=== PATIENT | female | born 1955 | race Caucasian/White ===

== ENCOUNTER 2020-08-14 19:02 | Inpatient (IN) | payer MEDICARE, OTHER, SELFPAY ==
--- NOTE | ~2020-08-14 | CT_ITS ---
EXAMINATION: CT abdomen pelvis w con EXAM DATE: 08/14/2020 21:08 INDICATION: GI bleed. Abdominal pain, left lower quadrant pain. TECHNIQUE: Spiral CT of the abdomen and pelvis was performed following intravenous injection of 100 m L Omnipaque 350. Axial, coronal and sagittal images were reviewed. The dose-length product (DLP) fo r this examination was 781.12 mGy-cm. The exposure was tailored according to patient size (auto mA e xposure control), and iterative reconstruction (ASIR) was used as additional dose reduction technique . There is no prior study for comparison. FINDINGS: The liver, spleen, adrenal glands and pancreas are unremarkable. Gallbladder is unremarkab le. No biliary obstruction. Portal and splenic veins are patent. Kidneys enhance symmetrically. T here is no hydronephrosis. The uterus is not identified and has likely been surgically resected. T he bladder is unremarkable. There is no retroperitoneal or pelvic lymphadenopathy. There is mild s cattered arteriosclerotic disease. The appendix is normal. There is small sliding gastroesophageal hiatal hernia. There is splenic fle xure and descending colonic wall moderate edema, appearance is consistent with colitis, most likely i nfectious. No free intraperitoneal gas. The heart is normal in size. There are no pericardial or pleural effusions. The lung bases are unremarkable. There are no osteoblastic or osteolytic lesion s identified. IMPRESSION: 1. Splenic flexure and descending colonic colitis. Reviewed, dictated and finalized at location A.
[2020-08-14 19:16] VITALS: BP 132/70; PULSE 72; RESP 20; TEMP 37; O2SAT 100
[2020-08-14 20:00] LABS: Basophils Absolute Auto 0.1 K/mm3 (0.0-0.1); Basophils Percent Auto 0.5 % (0.2-1.2); Eosinophils Absolute Auto 0.2 K/mm3 (0-0.3); Eosinophils Percent Auto 1.7 % (0-4.4); Hematocrit 36.6 % (37.0-47.0); Hemoglobin 11.7 g/dL (12.0-15.0); Immature Granulocyte Absolute 0.02 K/mm3 (0.00-0.031); Immature Granulocyte Percent A 0.2 % (0-0.5); Lymphocytes Absolute Auto 1.08 K/mm3 (0.9-3.2); Lymphocytes Percent Auto 10.4 % (18.3-44.2); Mean Corpuscular Hemoglobin 31.1 pg (26-34); Mean Corpuscular Volume 97.3 fl (80-100); Monocytes Absolute Auto 0.9 K/mm3 (0.1-0.6); Monocytes Percent Auto 8.5 % (2.6-8.5); Neutrophils Absolute Auto 8.2 K/mm3 (1.3-6.7); Neutrophils Percent Auto 78.7 % (45.5-73.1); Platelet Count Result 189 k/mm3 (150-375); Red Blood Count 3.76 M/mm3 (4.2-5.4); Red Cell Distribution Width 12.7 % (11.5-14.5); White Blood Count 10.4 K/mm3 (4.5-10.0)
[2020-08-14 20:06] LABS: Add Urine Microscopic? YES; Appearance Urine Cloudy (Clear); Bacteria Urine Trace /hpf; Bilirubin Urine Negative (Negative); Blood Urine 1+ (Negative); Color Urine Yellow (Yellow); Glucose Urine UA Negative (Negative); Ketones Urine Negative (Negative); Leukocyte Esterase Ur 1+ LEU/UL (Negative); Mucus Urine Rare /lpf; Nitrate Urine Negative (Negative); Protein Urine 2+ mg/dL (Negative); Specific Grav Ur 1.017 (1.001-1.035); Squamous Epithelial Cell Urine Moderate /hpf (Few); Urobilinogen Urine Negative mg/dL (<2.0); WBC Urine 16-20 /hpf
[2020-08-14 20:12] LABS: Alanine Aminotransferase 23 U/L (4-35); Albumin Level 4.6 g/dL (3.5-5.1); Alkaline Phosphatase 65 U/L (38-126); Anion Gap 12 mmol/L (8-16); Aspartate Amino Transferase 24 U/L (14-36); Bilirubin,Total 0.5 mg/dL (0.2-1.3); Blood Urea Nitrogen 34 mg/dL (7-17); Calcium 9.8 mg/dL (8.4-10.2); Carbon Dioxide 25 mmol/L (22-30); Chloride 102 mmol/L (98-107); Estimated Glomerular Filt Rate 35; Glucose 115 mg/dL (65-105); Lipase 81 U/L (23-300); Potassium 4.2 mmol/L (3.4-5.0); Sodium 139 mmol/L (137-145)
[2020-08-14 21:00] VITALS: BP 127/73; PULSE 69; RESP 16; O2SAT 100
--- NOTE | 2020-08-14 21:13 | ED.NAVMDI ---
HPI - Nausea/Vomiting/Diarrhea General Chief complaint: Nausea/Vomiting/Diarrhea Stated complaint: abd pain, diarrhea, blood in stool Time Seen by Provider: 08/14/20 19:29 Source: patient Mode of arrival: ambulatory Limitations: no limitations History of Present Illness HPI Narrative: 64-year-old female Generally healthy, has hypertension and hyperlipidemia Complains of 2 days of diarrhea accompanied by crampy abdominal pain which is more severe on the left side There was a little bit of blood noted yesterday and subsequent stools and then this evening she had a single large bloody bowel movement No fever nausea but no vomiting no urinary symptoms Location of pain: LLQ Related Data Home Medications Medication Instructions Recorded Confirmed calcium carbonate 600 mg calcium 600 mg PO DAILY 09/24/19 (1,500 mg) tablet Allergies Allergy/AdvReac Type Severity Reaction Status Date / Time codeine Allergy Mild BLURRED Verified 09/24/19 10:13 VISION propoxyphene Allergy Mild BLURRED Verified 09/24/19 10:13 VISION bupivacaine Allergy Unknown . Verified 09/24/19 10:13 ALL GOLD[employer]ODUCTS MADE WITH Allergy Mild Swelling Uncoded 08/30/19 11:54 ESTERS Review of Systems Review of Systems: All systems reviewed & are unremarkable except as noted in HPI and below Constitutional: Constitutional: Denies chills, Denies fatigue, Denies fever(s), Denies headache(s) and Denies night sweats Eyes: Eyes: Denies change in vision, Denies loss of vision and Denies other visual disturbances ENT: Denies headache(s), Denies hoarseness, Denies epistaxis, Denies nasal congestion and Denies sore throat Cardiovascular: Cardiovascular: Denies chest pain, Denies leg edema, Denies palpitations and Denies dyspnea Respiratory: Respiratory: Denies cough, Denies dyspnea and Denies wheezing Gastrointestinal: Gastrointestinal: Reports abdominal pain, Reports diarrhea, Denies nausea and Denies vomiting Genitourinary: Genitourinary: Denies hematuria, Denies urinary frequency and Denies dysuria Musculoskeletal: Musculoskeletal: Denies abnormal gait, Denies deformity, Denies joint swelling, Denies muscle weakness and Denies numbness Integumentary/Breasts: Skin/Breast: Denies rash, Denies unusual bruising and Denies wounds Neurologic: Denies abnormal gait, Denies headache(s), Denies focal weakness, Denies loss of vision and Denies numbness Psychiatric: Psychiatric: Reports no additional psychiatric complaints Endocrine: Endocrine: Denies fatigue and Denies palpitations Hematologic/Lymphatic: Hematologic/Lymphatic: Denies easy bleeding and Denies easy bruising Allergic/Immunologic: Allergic/Immunologic: Denies wheezing PMFSH Past Medical History Medical History (Updated 08/14/20 @ 22:08 by Hamilton Smith MD) Benign essential hypertension CKD (chronic kidney disease) Encounter for preventive health examination Hyperlipidemia On intermission coordinator drug therapy Pre-diabetes Family History Family History (System 08/30/19 @ 11:54 by Little Rocha) Mother Hypertension Family history of malignant neoplasm of breast in first degree relative Social History Social History (System 08/30/19 @ 11:54 by Little Rocha) Smoking status: Never smoker Alcohol intake: current Gender identity (if verbalized by the patient): Female Exam Const: General: healthy appearing, no acute distress and well developed Nutritional Appearance: well nourished Orientation/consciousness: patient oriented x3 (alert) and Other orientation findings (Alert) Limitations: no limitations HENMT: Head: normocephalic and atraumatic Ears: external ears normal General nose exam: No nasal discharge present Face and sinus: face symmetric Mouth: Yes lip normal, Yes tongue normal and Yes moist mucous membranes Throat: other (No exudate, no erythema) Eyes: Conjunctivae: conjunctivae normal Sclera: sclerae normal EOM: EOMs intact bilaterally
[2020-08-14 22:30] VITALS: BP 130/75; PULSE 67; RESP 18; O2SAT 100
[2020-08-14 23:00] VITALS: BP 125/60; PULSE 72; RESP 18; TEMP 36.8; O2SAT 100; BMI 31.6
--- NOTE | 2020-08-14 23:00 | PC.NURSE ---
This patient, Olimpia Zapata, was admitted to 3 [facility] Surg Room 314-01. Patient/family oriented to hospital policies and general routines including ID bracelet, bed and alarms, visiting hours, pain management, procedures, bathroom and other care routines, personal items, smoking policy, room service/diet, and visiting hours. Information on how to activate the Rapid Response Team has been discussed. Patient/Family are encouraged to report perceived risks to care and to ask questions if they do not understand what they are told or what they should do.
[2020-08-15] VITALS (8 sets, daily range): BP systolic 83–134; BP diastolic 43–89; PULSE 61–76; RESP 16–20; TEMP 36.4–37.1; O2SAT 95–98
[2020-08-15] MEDS: ACETAMINOPHEN 325 MG TABLET PO ×3 (00:24→21:58)
[2020-08-15] MEDS: metroNIDAZOLE 250 MG TABLET 500 MG PO ×2 (00:25→06:02)
[2020-08-15] MEDS: LACTATED RINGERS 1,000 ML 125 ML IV CONT ×2 (00:28→07:44)
[2020-08-15 06:31] LABS: Basophils Percent Auto 0.5 % (0.2-1.2); Eosinophils Absolute Auto 0.2 K/mm3 (0-0.3); Hematocrit 32.2 % (37.0-47.0); Hemoglobin 10.6 g/dL (12.0-15.0); Immature Granulocyte Absolute 0.03 K/mm3 (0.00-0.031); Immature Granulocyte Percent A 0.4 % (0-0.5); Lymphocytes Percent Auto 17.5 % (18.3-44.2); Mean Corpuscular HGB Conc 32.9 g/dl (32-36); Mean Corpuscular Hemoglobin 31.1 pg (26-34); Mean Corpuscular Volume 94.4 fl (80-100); Mean Platelet Volume 9.8 fl (7.4-10.4); Monocytes Absolute Auto 0.7 K/mm3 (0.1-0.6); Monocytes Percent Auto 8.9 % (2.6-8.5); Neutrophils Absolute Auto 5.2 K/mm3 (1.3-6.7); Neutrophils Percent Auto 70.7 % (45.5-73.1); Platelet Count Result 167 k/mm3 (150-375); Red Blood Count 3.41 M/mm3 (4.2-5.4); Red Cell Distribution Width 12.8 % (11.5-14.5); White Blood Count 7.4 K/mm3 (4.5-10.0)
--- NOTE | 2020-08-15 07:50 | PM.IMHP ---
H&P: HPI History of Present Illness Date/Time: 08/15/20 07:50 PATIENT IS ADMITTED UNDER OBSERVATION Chief complaint: lower gi bleed, colitis Narrative: Olimpia Zapata is a 64 year old female with hypertension, CKD and hyperlipidemia who presents to the emergency room with complaints of bloody diarrhea. Yesterday morning patient awoke around 1-2 a.m. with severe crampy abdominal pain. She had severe diarrhea that was bloody. Symptoms subsided and she was able to return to bed. During the day yesterday however she continued to have bright red bowel movements with small amounts of stool. She took Tylenol with benefit. She denies taking other medications. There is no fever. She did have chills and diaphoresis. She felt nauseous but no vomiting. Last colonoscopy was when she was 49 years old and thee were no findings. She has no hemorrhoids. She did eat for frozen shrimp, spinach and spaghetti squash the night before. She has had the spinach and squash prior but not the shrimp. Patient awoke around 6:00 p.m. yesterday from a nap again with crampy abdominal pain and had heavy bright red blood per rectum that she describes as a lot . No history of bloody diarrhea. No oral lesions. No vision changes or eye pain. No chest pain or palpitations. No shortness of breath or cough. No neurologic symptoms. She does have carpal tunnel symptoms on occasion but this is chronic. No dysuria or hematuria. Because of the persistent bloody stools, she presented to the emergency room for evaluation. In the emergency room she was hemodynamically stable[place] [address]. Hemoglobin was 11.7. Creatinine is 1.5. lipase and LFTs are normal. UA noted but had moderate squamous epithelial cells. Urine culture was ordered. CT of the abdomen pelvis showed splenic flexure and descending colonic colitis. Patient was treated with Tylenol, IV fluids, Flagyl and Pepcid. GI has been consulted. She has not had any further bowel movements since admission. Hemoglobin this morning is 10.6. Review of Systems Review of Systems: All systems reviewed & are unremarkable except as noted in HPI and below PMFSH Past Medical History Medical History (Updated 08/15/20 @ 08:46 by Terry Madsen MD) Benign essential hypertension CKD (chronic kidney disease) Depression with anxiety situational GERD (gastroesophageal reflux disease) Hyperlipidemia Palpitations Hx of in 2018 with Holter showing PAC/PVC; Echo showing diastolic dysfxn grade II and EF 65% Pre-diabetes Surgical History Surgical History Hx of breast biopsy Benign Hx of hysterectomy with unilateral oophorectomy Family History Family History (Updated 08/15/20 @ 08:30 by Terry Madsen MD) Mother Hypertension Breast cancer Father Malignant neoplasm of prostate Social History Social History (Updated 08/15/20 @ 08:31 by Terry Madsen MD) Social History: patient is . She lives alone. No pets. She drinks 2 alcoholic drinks a night. No drug use. Lifelong nonsmoker. She is a full code. She nominates her brother to be the individual would make medical decisions for her if she is not able. Smoking status: Never smoker Alcohol intake: current Drinks per week: 5 Substance use: never Gender identity (if verbalized by the patient): Female Sexual Orientation (if Verbalized by the Patient): Straight or Heterosexual Spiritual care concerns: No Meds Home Medications and Allergies Home Medications Medication Instructions Recorded Confirmed Type calcium carbonate 600 mg calcium 600 mg PO DAILY 09/24/19 08/14/20 History (1,500 mg) tablet betaxolol 10 mg tablet 10 mg PO DAILY #90 tablet 06/19/20 08/14/20 Rx lisinopril 20 mg tablet 20 mg PO DAILY #90 tablet 06/19/20 08/14/20 Rx rosuvastatin 40 mg tablet 40 mg PO DAILY #90 tablet 06/19/20 08/14/20 Rx aspirin [Adult Aspiri
[2020-08-15] MEDS: LACTATED RINGERS 1,000 ML 75 ML IV CONT ×2 (09:54→22:22)
--- NOTE | 2020-08-15 09:56 | WPDGICN ---
Assessment and Plan Assessment and plan (1) Colitis: Code(s): K52.9 - Noninfective gastroenteritis and colitis, unspecified Status: Acute Assessment and Plan: Patient with acute diarrhea bleeding and left lower quadrant pain all consistent with colitis. CT scan seems to confirm this. Infectious etiology most likely. Plan is to evaluate with endoscopy today. Stool cultures are suggested broad-spectrum antibiotics in the interim. (2) Acute lower gastrointestinal bleeding: Code(s): K92.2 - Gastrointestinal hemorrhage, unspecified Status: Acute GI Consult Note Consult date/time: 08/15/20 09:56 HPI: Olimpia Zapata is a 64 year old female Seen in evaluation at the request of the emergency room. Patient in usual state of health till night before last when she was awoken in the middle of the night with severe abdominal pain. She had rather profuse watery diarrhea. Yesterday continued to have diarrhea but with blood. For this reason she presented the emergency room. A CT scan suggest inflammation of the colon in the descending colon. Patient denies any prior bleeding. She does not typically have abdominal pain. She does relate eating food the potentially had spoiled. She denies any recent travel. Her family history is noncontributory. All of been healthy. Review of Systems Review of Systems: All systems reviewed & are unremarkable except as noted in HPI and below PMFSH Past Medical History Medical History (Updated 08/15/20 @ 08:46 by Terry Mdasen MD) Benign essential hypertension CKD (chronic kidney disease) Depression with anxiety situational GERD (gastroesophageal reflux disease) Hyperlipidemia Palpitations Hx of in 2018 with Holter showing PAC/PVC; Echo showing diastolic dysfxn grade II and EF 65% Pre-diabetes Surgical History Surgical History Hx of breast biopsy Benign Hx of hysterectomy with unilateral oophorectomy Family History Family History (Updated 08/15/20 @ 08:30 by Terry Madsen MD) Mother Hypertension Breast cancer Father Malignant neoplasm of prostate Social History Social History (Updated 08/15/20 @ 08:31 by Terry Madsen MD) Social History: patient is . She lives alone. No pets. She drinks 2 alcoholic drinks a night. No drug use. Lifelong nonsmoker. She is a full code. She nominates her brother to be the individual would make medical decisions for her if she is not able. Smoking status: Never smoker Alcohol intake: current Drinks per week: 5 Substance use: never Gender identity (if verbalized by the patient): Female Sexual Orientation (if Verbalized by the Patient): Straight or Heterosexual Spiritual care concerns: No Meds Home Medications and Allergies Home Medications Medication Instructions Recorded Confirmed Type calcium carbonate 600 mg calcium 600 mg PO DAILY 09/24/19 08/14/20 History (1,500 mg) tablet betaxolol 10 mg tablet 10 mg PO DAILY #90 tablet 06/19/20 08/14/20 Rx lisinopril 20 mg tablet 20 mg PO DAILY #90 tablet 06/19/20 08/14/20 Rx rosuvastatin 40 mg tablet 40 mg PO DAILY #90 tablet 06/19/20 08/14/20 Rx aspirin [Adult Aspirin EC Low 81 mg PO 3XW 08/14/20 08/14/20 History Strength] omeprazole [Prilosec] 20 mg PO DAILY 08/14/20 08/14/20 History Allergies Allergy/AdvReac Type Severity Reaction Status Date / Time codeine Allergy Mild BLURRED Verified 08/14/20 22:13 VISION propoxyphene Allergy Mild BLURRED Verified 08/14/20 22:13 VISION bupivacaine Allergy Unknown . Verified 08/14/20 22:13 ALL G[employer] MADE WITH Allergy Mild Swelling Uncoded 08/14/20 22:13 ESTERS Vital Signs Vital Signs - 24 hr 08/14/20 19:16 08/14/20 21:00 08/14/20 22:30 Temperature 98.6 F Pulse Rate 72 69 67 Respiratory Rate 20 16 18 Blood Pressure 132/70 127/73 130/75 Pulse Oximetry 100 100 100
--- NOTE | 2020-08-15 12:30 | PC.NURSE ---
To GI Lab per w/c, IV locked. Report given to AMBERLY.
[2020-08-15] MEDS: LACTATED RINGERS 1,000 ML 150 ML IV CONT (12:56)
--- NOTE | 2020-08-15 13:01 | WPDANESEPPF ---
Anes - Initial Pre Proc Eval Procedure: Operation Date: 08/15/20 13:30 Proposed Procedures p Colonoscopy - Hamilton Alvarez MD Date/Time: 08/15/20 13:01 Surgeon: Rajan Madsen MD Pre Op Diagnosis: lower gi bleed, colitis Patient Data Age: 64 Gender: F Height: 5 ft 1 in Weight: 75.8 kg Last Vital Signs Temp 98.1 F 08/15/20 12:53 Pulse 70 08/15/20 12:53 Resp 16 08/15/20 12:53 BP 132/71 08/15/20 12:53 Pulse Ox 96 08/15/20 12:53 Allergies Allergy/AdvReac Type Severity Reaction Status Date / Time codeine Allergy Mild BLURRED Verified 08/14/20 22:13 VISION propoxyphene Allergy Mild BLURRED Verified 08/14/20 22:13 VISION bupivacaine Allergy Unknown . Verified 08/14/20 22:13 ALL [employer] MADE WITH Allergy Mild Swelling Uncoded 08/14/20 22:13 ESTERS Home Medications Medication Instructions Recorded Confirmed Type calcium carbonate 600 mg calcium 600 mg PO DAILY 09/24/19 08/14/20 History (1,500 mg) tablet betaxolol 10 mg tablet 10 mg PO DAILY #90 tablet 06/19/20 08/14/20 Rx lisinopril 20 mg tablet 20 mg PO DAILY #90 tablet 06/19/20 08/14/20 Rx rosuvastatin 40 mg tablet 40 mg PO DAILY #90 tablet 06/19/20 08/14/20 Rx aspirin [Adult Aspirin EC Low 81 mg PO 3XW 08/14/20 08/14/20 History Strength] omeprazole [Prilosec] 20 mg PO DAILY 08/14/20 08/14/20 History Laboratory Tests 08/14/20 08/14/20 08/14/20 19:49 19:52 19:52 WBC 10.4 K/mm3 H K/mm3 (4.5-10.0) RBC 3.76 M/mm3 L M/mm3 (4.2-5.4) Hgb 11.7 g/dL L g/dL (12.0-15.0) Hct 36.6 % L % (37.0-47.0) MCV 97.3 fl fl (80-100) MCH 31.1 pg pg (26-34) MCHC 32.0 g/dl g/dl (32-36) RDW 12.7 % % (11.5-14.5) Plt Count 189 k/mm3 k/mm3 (150-375) MPV 10.0 fl fl (7.4-10.4) Immature Gran % (Auto) 0.2 % % (0-0.5) Neut % (Auto) 78.7 % H % (45.5-73.1) Lymph % (Auto) 10.4 % L % (18.3-44.2) [place] % (Auto) 8.5 % % (2.6-8.5) Eos % (Auto) 1.7 % % (0-4.4) Baso % (Auto) 0.5 % % (0.2-1.2) Lymph # (Auto) 1.08 K/mm3 K/mm3 (0.9-3.2) [place] # (Auto) 0.9 K/mm3 H K/mm3 (0.1-0.6) Eos # (Auto) 0.2 K/mm3 K/mm3 (0-0.3) Baso # (Auto) 0.1 K/mm3 K/mm3 (0.0-0.1) Abs Immat Gran (auto) 0.02 K/mm3 K/mm3 (0.00-0.031) Absolute Neuts (auto) 8.2 K/mm3 H K/mm3 (1.3-6.7) Absolute Nucleated RBC 0.0 K/mm3 K/mm3 (0.0-0.012) Nucleated RBC % 0.0 % % (0.0-0.2) Sodium 139 mmol/L mmol/L (137-145) Potassium 4.2 mmol/L mmol/L (3.4-5.0) Chloride 102 mmol/L mmol/L (98-107) Carbon Dioxide 25 mmol/L mmol/L (22-30) Anion Gap 12 mmol/L mmol/L (8-16) BUN 34 mg/dL H mg/dL (7-17) Creatinine 1.50 mg/dL H mg/dL (0.7-1.0) Estim Creat Clear Calc Not Reportable Estimated GFR 35 L (59 - ) Glucose 115 mg/dL H mg/dL (65-105) Calcium 9.8 mg/dL mg/dL (8.4-10.2) Total Bilirubin 0.5 mg/dL mg/dL (0.2-1.3) AST 24 U/L U/L (14-36) ALT 23 U/L U/L (4-35) Alkaline Phosphatase 65 U/L U/L (38-126) Total Protein 7.0 g/dL g/dL (6.3-8.2) Albumin 4.6 g/dL g/dL (3.5-5.1) Lipase 81 U/L U/L (23-300) Urine Color Urine Appearance Urine pH Ur Specific [place] Urine Protein Urine Glucose (UA) Urine Ketones Ur Blood (Man) Urine Nitrate Urine Bilirubin Urine Urobilinogen Leukocyte Esterase Rfl Urine RBC Urine WBC Ur Squamous Epith Cells Urine Bacteria Hyaline Casts Urine Mucus Blood Type O Positive
--- NOTE | 2020-08-15 14:50 | PC.NURSE ---
Returned from GI Lab. Report received from RN IV fluids restarted at 75ml/hr. patient awake and alert. Denies pain or discomfort at present.
--- NOTE | 2020-08-15 15:15 | PHAR ---
PT'S HOME MED BETAXOLOL 10 MG TABS VERIFIED BY PHARMACY
[2020-08-16] MEDS: ACETAMINOPHEN 325 MG TABLET PO (05:35)
[2020-08-16 06:00] VITALS: BP 117/62; PULSE 63; RESP 16; TEMP 36.3; O2SAT 99
[2020-08-16 06:38] LABS: Basophils Percent Auto 0.7 % (0.2-1.2); Eosinophils Absolute Auto 0.2 K/mm3 (0-0.3); Eosinophils Percent Auto 2.9 % (0-4.4); Hemoglobin 10.3 g/dL (12.0-15.0); Immature Granulocyte Absolute 0.02 K/mm3 (0.00-0.031); Immature Granulocyte Percent A 0.3 % (0-0.5); Lymphocytes Absolute Auto 1.33 K/mm3 (0.9-3.2); Lymphocytes Percent Auto 21.7 % (18.3-44.2); Mean Corpuscular HGB Conc 32.2 g/dl (32-36); Mean Corpuscular Hemoglobin 30.7 pg (26-34); Mean Corpuscular Volume 95.5 fl (80-100); Mean Platelet Volume 9.6 fl (7.4-10.4); Monocytes Absolute Auto 0.5 K/mm3 (0.1-0.6); Monocytes Percent Auto 7.8 % (2.6-8.5); Neutrophils Absolute Auto 4.1 K/mm3 (1.3-6.7); Neutrophils Percent Auto 66.6 % (45.5-73.1); Platelet Count Result 158 k/mm3 (150-375); Red Blood Count 3.35 M/mm3 (4.2-5.4); Red Cell Distribution Width 12.8 % (11.5-14.5); White Blood Count 6.1 K/mm3 (4.5-10.0)
[2020-08-16 06:51] LABS: Anion Gap 3 mmol/L (8-16); Blood Urea Nitrogen 20 mg/dL (7-17); Calcium 9.8 mg/dL (8.4-10.2); Carbon Dioxide 31 mmol/L (22-30); Chloride 104 mmol/L (98-107); Estimated CRCL calculation 31 ml/min; Estimated Glomerular Filt Rate 35; Glucose 112 mg/dL (65-105); Potassium 4.1 mmol/L (3.4-5.0); Sodium 138 mmol/L (137-145)
[2020-08-16 08:00] VITALS: PULSE 63; RESP 16; O2SAT 99
--- NOTE | 2020-08-16 08:28 | WPDGIPROGNO ---
Progress Note: A&P Assessment and Plan (1) Colitis: Code(s): K52.9 - Noninfective gastroenteritis and colitis, unspecified Status: Acute Assessment and Plan: continue with supportive care, iv antibiotics (infectious vs ischemic) no more bleeding but she has not had a BM after colonoscopy will advance diet, and monitor for signs of bleeding or pain. She would like to wait at least another day (2) Acute lower gastrointestinal bleeding: Code(s): K92.2 - Gastrointestinal hemorrhage, unspecified Status: Acute Assessment and Plan: hb 10.5, monitor (3) Benign essential hypertension: Code(s): I10 - Essential (primary) hypertension Status: Acute (4) CKD (chronic kidney disease): Qualifiers: Chronic kidney disease stage: stage 1 Qualified Code(s): N18.1 - Chronic kidney disease, stage 1 Code(s): N18.9 - Chronic kidney disease, unspecified Status: Acute Assessment and Plan: creatinine stable at 1.5 Subjective Date/time seen: 08/16/20 08:28 Interval history: Dr Alvarez performed colonoscopy tomorrow c/w moderate colitis in descending colon either infectious vs ischemic. Today she is feeling better, still pain in llq but it is not as sharp. She has not had a BM since colonoscopy. Tolerating liquid diet Review of Systems Review of Systems: All systems reviewed & are unremarkable except as noted in HPI and below Exam Const: General: comfortable and no acute distress HENMT: General nose exam: Normal nares present Eyes: General: appearance normal, both eyes and all related structures Neck: Neck: no JVD Resp: Auscultation: clear to auscultation bilaterally Cardio: Rate: regular rate Rhythm: regular rhythm GI: Inspection: non-distended GI Palp: Yes Soft to palpation and Yes Tenderness to palpation present (GI) (minimally ttp in llq without guarding) Auscultation: normal bowel sounds Skin: General skin exam: normal color Neuro: General: gait normal Speech: normal speech Extrem: General: normal to inspection Psych: Mental Status: mental status grossly normal Objective Data Vital Signs Vital Signs: Vital Signs - 24 hr 08/15/20 12:53 08/15/20 14:03 08/15/20 14:13 Temperature 98.1 F Pulse Rate 70 62 63 Respiratory Rate 16 16 16 Blood Pressure 132/71 83/43 L 100/51 L Pulse Oximetry 96 98 98 08/15/20 14:23 08/15/20 14:33 08/15/20 14:57 Temperature 97.6 F Pulse Rate 61 64 68 Respiratory Rate 16 16 20 Blood Pressure 104/51 L 106/55 L 134/64 Pulse Oximetry 98 98 95 08/15/20 22:00 08/16/20 06:00 Temperature 98.2 F 97.3 F L Pulse Rate 76 63 Respiratory Rate 20 16 Blood Pressure 124/89 117/62 Pulse Oximetry 95 99 Intake/Output Intake/Output: Intake & Output 08/13/20 08/14/20 08/15/20 08/16/20 23:59 23:59 23:59 23:59 Intake Total 3620 1171 Output Total 500 1400 Balance 3120 -229 Meds/Results Medications: Active Medications Generic Name Dose Route Start Last Admin Trade Name Freq PRN Reason Stop Dose Admin Acetaminophen 325 mg 08/14/20 23:57 08/16/20 05:35 Acetaminophen 325 Mg Tablet PO 325 mg Q4H PRN Administration Mild Pain (1-3) or Fever Lactated Ringer's 1,000 mls @ 75 mls/hr 08/14/20 22:10 08/16/20 05:17 Lr - Lactated Ringers Iv IV CONT 75 mls/hr .[id number] MARIA ELENA Infusion Metronidazole 250 mg in 50 mls @ 50 mls/hr 08/16/20 07:35 Flagyl 250 Mg/Iso Soln 50 Ml IVPB Q6HR MARIA ELENA Ciprofloxacin/Dextrose 200 mls @ 200 mls/hr 08/16/20 09:00 Cipro 400 Mg/D5w 200 Ml IVPB Q12HR MARIA ELENA Pantoprazole Sodium 40 mg 08/16/20 09:00 Pantoprazole 40 Mg Tablet PO QAM MARIA ELENA Rosuvastatin Calcium 40 mg 08/16/20 09:00 Rosuvastatin 10 Mg Tablet PO DAILY [facility] Radiology Results: ITS Impressions Abdomen/Pelvis CT 08/14/20 21:09 IMPRESSION: 1. Splenic flexure and descending colonic colitis. Labs Labs: Laboratory Results - last 24
[2020-08-16] MEDS: metroNIDAZOLE 250MG/ISO 50 ML 250 MG/50 ML BAG 50 MG IVPB ×3 (09:03→18:55)
[2020-08-16] MEDS: ROSUVASTATIN 10 MG TABLET 40 MG PO (09:07)
[2020-08-16] MEDS: PANTOPRAZOLE 40 MG TABLET PO (09:07)
[2020-08-16] MEDS: CIPROFLOXACIN 400 MG/D5W 200ML 200 ML 200 MG IVPB ×2 (10:06→21:22)
[2020-08-16 14:00] VITALS: BP 111/50; PULSE 68; RESP 14; TEMP 36.6; O2SAT 100
[2020-08-16] MEDS: LACTATED RINGERS 1,000 ML 75 ML IV CONT (16:06)
--- NOTE | 2020-08-16 16:44 | PM.IMPN ---
Progress Note: A&P Assessment and Plan (1) Acute lower gastrointestinal bleeding: Code(s): K92.2 - Gastrointestinal hemorrhage, unspecified Status: Acute Assessment and Plan: Patient with acute onset of lower GI bleed with bright red blood per rectum. Suspect related to the colitis. Most likely this is infectious etiology. Inflammatory bowel disease seems less likely. Consider ischemic colitis specially since it is at a watershed area. She does have some risk factors with hyperlipidemia and hypertension. Colonoscopy showing colitis so will continue abx. Follow up on stool studies. (2) Colitis: Code(s): K52.9 - Noninfective gastroenteritis and colitis, unspecified Status: Acute Assessment and Plan: As above (3) CKD (chronic kidney disease): Qualifiers: Chronic kidney disease stage: stage 1 Qualified Code(s): N18.1 - Chronic kidney disease, stage 1 Code(s): N18.9 - Chronic kidney disease, unspecified Status: Acute Assessment and Plan: Creatinine 1.5 admission. No official lab work in the chart to provide baseline although there is a handwritten note showing creatinine was 1.2-1.5. Cr again 1.5 today to suggest this is her baseline. Stop IV fluids. Continue to monitor renal function. (4) GERD (gastroesophageal reflux disease): Code(s): K21.9 - Gastro-esophageal reflux disease without esophagitis Status: Acute Assessment and Plan: Stable. Continue omeprazole. (5) Pre-diabetes: Code(s): R73.03 - Prediabetes Status: Acute Assessment and Plan: A1c 6.1 about a year ago by handwritten note. Glucose reasonable. Continue monitor glucose periodically. (6) Hyperlipidemia: Qualifiers: Hyperlipidemia type: mixed hyperlipidemia Qualified Code(s): E78.2 - Mixed hyperlipidemia Code(s): E78.5 - Hyperlipidemia, unspecified Status: Acute Assessment and Plan: LFTs within normal limits. Continue Crestor. (7) Benign essential hypertension: Code(s): I10 - Essential (primary) hypertension Status: Acute Assessment and Plan: Blood pressure reviewed on 08/16. BP well controlled. Continue beta-ruby. Continue to hold lisinopril. Resume lisinopril as blood pressure allows. (8) DVT prophylaxis: Code(s): Z29.9 - Encounter for prophylactic measures, unspecified Status: Acute Assessment and Plan: SCDs Subjective Date/time seen: 08/16/20 16:44 Interval history: Date of service: 08/16 64yo female here for GI bleed and colitis. Patient had colonoscopy on 08/15 showing moderate colitis in descending colon either infectious vs ischemic. Feels much better. ABd pain improved but still with occasional cramps. No CP ro SOB> Had BM earlier that had dark blood intermixed with stool but no BRBPR. Exam Narrative: Exam Narrative: AF 97.9 111/50 68 14 100% Gen - NARD Chest - CTA bilaterally, nml RR CV - RRR S1/S2 Abd - abdomen was soft. Nondistended. Positive bowel sounds. nontender Ext - no pedal edema Psych - normal mood and affect. Skin - warm and dry. Objective Data Vital Signs Vital Signs: Vital Signs - 24 hr 08/15/20 22:00 08/16/20 06:00 08/16/20 08:00 Temperature 98.2 F 97.3 F L Pulse Rate 76 63 63 Respiratory Rate 20 16 16 Blood Pressure 124/89 117/62 Pulse Oximetry 95 99 99 08/16/20 14:00 Temperature 97.9 F Pulse Rate 68 Respiratory Rate 14 Blood Pressure 111/50 L Pulse Oximetry 100 Intake/Output Intake/Output: Intake & Output 08/13/20 08/14/20 08/15/20 08/16/20 23:59 23:59 23:59 23:59 Intake Total 3620 2380 Output Total 500 1400 Balance 3120 980 Meds/Results Medications: Active Medications Generic Name Dose Route Start Last Admin Trade Name Freq PRN Reason Stop Dose Admin Acetaminophen 325 mg 08/14/20 23:57 08/16/20 05:35 Acetaminophe
[2020-08-16 22:00] VITALS: BP 117/60; PULSE 64; RESP 18; TEMP 37.1; O2SAT 99
[2020-08-17] MEDS: metroNIDAZOLE 250MG/ISO 50 ML 250 MG/50 ML BAG 50 MG IVPB ×2 (01:00→06:38)
[2020-08-17 06:00] VITALS: BP 106/48; PULSE 56; RESP 16; TEMP 36.5; O2SAT 99
[2020-08-17] MEDS: CIPROFLOXACIN 400 MG/D5W 200ML 200 ML 200 MG IVPB (08:30)
[2020-08-17] MEDS: ROSUVASTATIN 10 MG TABLET 40 MG PO (08:31)
[2020-08-17] MEDS: PANTOPRAZOLE 40 MG TABLET PO (08:31)
--- NOTE | 2020-08-17 10:50 | WPDGIPROGNO ---
Progress Note: A&P Assessment and Plan (1) Colitis: Code(s): K52.9 - Noninfective gastroenteritis and colitis, unspecified Status: Acute Assessment and Plan: doing better, on iv antibiotics she can go home with 5 more days of oral antibiotics follow up with Dr Alvarez in about 2 weeks stool result still pending (2) Acute lower gastrointestinal bleeding: Code(s): K92.2 - Gastrointestinal hemorrhage, unspecified Status: Acute Assessment and Plan: no more obvious bleeding, hb relatively stable (3) CKD (chronic kidney disease): Qualifiers: Chronic kidney disease stage: stage 1 Qualified Code(s): N18.1 - Chronic kidney disease, stage 1 Code(s): N18.9 - Chronic kidney disease, unspecified Status: Acute Assessment and Plan: will need follow up with her pcp (4) Benign essential hypertension: Code(s): I10 - Essential (primary) hypertension Status: Acute Subjective Date/time seen: 08/17/20 10:50 Interval history: she tolerated breakfast, yesterday had one BM with dark blood intermixed with stool but no BRBPR. Overall much better and she thinks that can go home today. Afebrile. Review of Systems Review of Systems: All systems reviewed & are unremarkable except as noted in HPI and below Exam Const: General: comfortable and no acute distress HENMT: General nose exam: Normal nares present Eyes: General: appearance normal, both eyes and all related structures Neck: Neck: no JVD Resp: Auscultation: clear to auscultation bilaterally Cardio: Rate: regular rate Rhythm: regular rhythm GI: Inspection: non-distended GI Palp: Yes Soft to palpation and No Tenderness to palpation present (GI) Auscultation: normal bowel sounds Skin: General skin exam: normal color Neuro: General: gait normal Speech: normal speech Extrem: General: normal to inspection Psych: Mental Status: mental status grossly normal Objective Data Vital Signs Vital Signs: Vital Signs - 24 hr 08/16/20 14:00 08/16/20 22:00 08/17/20 06:00 Temperature 97.9 F 98.8 F 97.7 F Pulse Rate 68 64 56 L Respiratory Rate 14 18 16 Blood Pressure 111/50 L 117/60 106/48 L Pulse Oximetry 100 99 99 Intake/Output Intake/Output: Intake & Output 10/08/15/20 08/16/20 08/17/20 23:59 23:59 23:59 23:59 Intake Total 3620 3145 650 Output Total 500 2800 1200 Balance 3120 345 -550 Meds/Results Medications: Active Medications Generic Name Dose Route Start Last Admin Trade Name Freq PRN Reason Stop Dose Admin Acetaminophen 325 mg 08/14/20 23:57 08/16/20 05:35 Acetaminophen 325 Mg Tablet PO 325 mg Q4H PRN Administration Mild Pain (1-3) or Fever Metronidazole 250 mg in 50 mls @ 50 mls/hr 08/16/20 07:35 08/17/20 06:38 Flagyl 250 Mg/Iso Soln 50 Ml IVPB 50 mls/hr Q6HR MARIA ELENA Administration Ciprofloxacin/Dextrose 200 mls @ 200 mls/hr 08/16/20 09:00 08/17/20 08:30 Cipro 400 Mg/D5w 200 Ml IVPB 200 mls/hr Q12HR MARIA ELENA Administration Pantoprazole Sodium 40 mg 08/16/20 09:00 08/17/20 08:31 Pantoprazole 40 Mg Tablet PO 40 mg QAM MARIA ELENA Administration Rosuvastatin Calcium 40 mg 08/16/20 09:00 08/17/20 08:31 Rosuvastatin 10 Mg Tablet PO 40 mg DAILY MARIA ELENA Administration Radiology Results: ITS Impressions Abdomen/Pelvis CT 08/14/20 21:09 IMPRESSION: 1. Splenic flexure and descending colonic colitis.
--- NOTE | 2020-08-17 11:36 | PM.DS ---
DS: Admitting Diagnosis Admitting Diagnosis Admitting Diagnosis: lower gi bleed, colitis DS: Discharge Diagnosis Discharge Diagnosis (1) Acute lower gastrointestinal bleeding: Code(s): K92.2 - Gastrointestinal hemorrhage, unspecified Status: Acute Assessment and Plan: Patient with acute onset of lower GI bleed with bright red blood per rectum prompting her to present to the ED. CT scan on admission showing splenic flexure and descending colonic colitis. Suspect GI bleed related to the colitis. Patient had Colonoscopy early in her admission which confirmed colitis. Most likely this is infectious etiology. Inflammatory bowel disease seems less likely. Consider ischemic colitis specially since it is at a watershed area. She does have some risk factors with hyperlipidemia and hypertension. And BP soft here and her lisinopril has remained on hold - she may have had a hypotensive event priro to admission that resulted in the ischemic colitis. Stool studies and pathology pending. She was continued on abx here. She feels well today and is eager for discharge. Plan home with Jairo and Flagyl (renally dosed) and to follow up with Dr Alvarez. (2) Colitis: Code(s): K52.9 - Noninfective gastroenteritis and colitis, unspecified Status: Acute Assessment and Plan: As above (3) CKD (chronic kidney disease): Qualifiers: Chronic kidney disease stage: stage 1 Qualified Code(s): N18.1 - Chronic kidney disease, stage 1 Code(s): N18.9 - Chronic kidney disease, unspecified Status: Acute Assessment and Plan: Creatinine 1.5 admission. No official lab work in the chart to provide baseline although there is a handwritten note showing creatinine was 1.2-1.5. Cr again 1.5 today to suggest this is her baseline. (4) GERD (gastroesophageal reflux disease): Code(s): K21.9 - Gastro-esophageal reflux disease without esophagitis Status: Acute Assessment and Plan: Stable. We continued her home omeprazole. (5) Pre-diabetes: Code(s): R73.03 - Prediabetes Status: Acute Assessment and Plan: A1c 6.1 about a year ago by handwritten note. Glucose reasonable. We monitored glucose periodically. (6) Hyperlipidemia: Qualifiers: Hyperlipidemia type: mixed hyperlipidemia Qualified Code(s): E78.2 - Mixed hyperlipidemia Code(s): E78.5 - Hyperlipidemia, unspecified Status: Acute Assessment and Plan: LFTs within normal limits. We continued her home Crestor. (7) Benign essential hypertension: Code(s): I10 - Essential (primary) hypertension Status: Acute Assessment and Plan: Blood pressure monitored. BP low at one point (83/43) but otherwise remained well controlled well controlled. We continued her home beta-ruby but held her lisinopril. Will continue to hold this for now. DS: Summary Hospital Course Reason for hospitalization: 64yo female here for GI bleed and found to have colitis. Please see H&P for details. Hospital Course: As above Time Spent with Patient Time attestation: Total time spent providing and/or coordinating discharge services: 34 minutes Time spent: Greater than 30 minutes Exam Narrative: Exam Narrative: AF 97.7 106/48 56 16 99% Gen - NARD Chest - CTA bilaterally, nml RR CV - RRR S1/S2 Abd - soft, NT/ND, +BS Ext - no pedal edema Psych - normal mood and affect. Skin - warm and dry. DS: Data Data Completed and Pending Pending studies at discharge: Pending at discharge 08/15/20 13:58 Surgical [PTH] Routine Discharge Plan Discharge Attending physician on discharge: Terry Madsen Consulting providers: Hamilton Alvarez Discharging Clinician: Terry Madsen Anticipated Discharge Date/Time: 08/17/20 11:54 Patient Disposition: Home, Self-Care Activity: as tolerated Diet: regular Discharge In
--- NOTE | 2020-08-21 08:49 | PC.NURSE ---
Stool cx is negative.
== END 2020-08-17 13:30 | disposition home or self-care (01) | DRG 392 ==
LOC: ANHED 22:18 → ANH3MEDSUR 22:33
PROVIDERS: Emergency Medicine; Internal Medicine Gastroenterology; Admitting Provider Internal Medicine; Emergency Provider Emergency Medicine; PCP Internal Medicine; Visit Provider Internal Medicine
PROC: 0DJD8ZZ Inspection of Lower Intestinal Tract, Via Natural or Artificial Opening Endoscopic (ICD-10-PCS; CPT 45378; principal; 2020-08-15 13:30)
DX: K52.9 Noninfective gastroenteritis and colitis, unspecified (principal); K64.8 Other hemorrhoids; I12.9 Hypertensive chronic kidney disease with stage 1 through stage 4 chronic kidney disease, or unspecified chronic kidney disease; N18.1 Chronic kidney disease, stage 1; K21.9 Gastro-esophageal reflux disease without esophagitis; R73.03 Prediabetes; E78.5 Hyperlipidemia, unspecified; Z79.82 Long term (current) use of aspirin; Z79.899 Other long term (current) drug therapy
CPT/HCPCS: 36415; 74177; 80048; 80053; 81001; 83690; 85025; 86850; 86900; 86901; 87045; 87046; 87077; 87086; 87088; 87427; 88305; 89055; 99285; A9270; G0378; J0744; J2704; J7120; Q9967

== ENCOUNTER 2020-09-08 11:09 | Outpatient (CLI) | payer MEDICARE, OTHER, SELFPAY ==
--- NOTE | ~2020-09-08 | MR_ITS ---
EXAMINATION: MRA abdomen wo/w con DATE: 09/08/2020 12:21 INDICATION: Stage I chronic kidney disease TECHNIQUE: Magnetic resonance angiography (MRA) of the abdomen was performed without and with 20 mL M ultihance intravenous contrast. Sequences included axial and coronal 2-D FIESTA, 3-D phase contrast a t the level renal arteries and pre contrast and three sequential coronal postcontrast FSPGR from [facility] rotating maximum intensity projection reconstructions were performed. COMPARISON: Chest enhanced CT abdomen and pelvis dated 08/14/2020 FINDINGS: Heart size is normal. No pericardial or pleural effusion. Liver, spleen, pancreas and bilateral adren al glands are normal. Bilateral kidneys are normal with symmetric parenchymal enhancement. Abdominal aorta is normal in caliber with no dissection or significant atherosclerotic plaque. The right renal artery, main left renal artery and smaller more inferior accessory left renal artery are patent with no discernible stenosis. The accessory left renal artery supplies the anterior lower pole of the left kidney. The celiac axis, superior mesenteric and inferior mesenteric arteries also appear patent wit h no evident stenosis visualized portions of the bowels and bones are unremarkable. No pathologically enlarged abdominal lymphadenopathy. Small fat-containing umbilical hernia. IMPRESSION: 1. Normal kidneys. No evident stenosis at the right renal, left renal or accessory left renal arterie s. Reviewed, dictated and finalized at location A. NUATOR IMPRESSION: 1. Normal kidneys. No evident stenosis at the right renal, left renal or access ory left renal arteries.
[2020-09-08 11:37] LABS: Estimated Glomerular Filt Rate 50
== END 2020-09-08 11:10 | disposition home or self-care (01) ==
PROVIDERS: PCP Internal Medicine; Visit Provider Internal Medicine
DX: N18.1 Chronic kidney disease, stage 1 (principal)
CPT/HCPCS: 74185; A9577; C8902

== ENCOUNTER → 2021-05-25 11:16 | Outpatient (CLI) | payer MEDICARE, OTHER, SELFPAY ==
--- NOTE | ~2021-05-25 | MM_ITS ---
EXAMINATION: MM screening juliana BI w lamberto HISTORY: Screening mammogram TECHNIQUE: Craniocaudal and mediolateral oblique 3-D tomosynthesis images were obtained and synthetic 2-D images were generated. CAD analysis was submitted and interpreted. COMPARISON: 06/25/2019 bilateral digital screening mammogram 05/01/2018 diagnostic right mammogram and limited right breast ultrasound 04/17/2018, 02/2017 bilateral digital screening mammogram examinations BREAST PARENCHYMAL COMPOSITION: The breasts are heterogeneously dense, which may obscure small masses . FINDINGS: Stable fibroglandular asymmetry. There is a history of prior benign excisional biopsy on th e right. There is no evidence of suspicious mass, calcification, or architectural distortion to suggest malign seng in either breast. There has been no other suspicious interval change. IMPRESSION: 1. No mammographic evidence of malignancy. 2. Recommend routine screening mammography in one year. BI-RADS Category 2: Benign finding(s). Reviewed, dictated and finalized at location A.
== END ==
PROVIDERS: PCP Internal Medicine; Visit Provider Internal Medicine
DX: Z12.31 Encounter for screening mammogram for malignant neoplasm of breast (principal)
CPT/HCPCS: 77063; 77067

== ENCOUNTER 2022-03-27 09:55 | Emergency (ER) | payer MEDICARE, OTHER, SELFPAY ==
[2022-03-27 10:02] VITALS: BP 137/83; PULSE 73; RESP 18; TEMP 36.7; O2SAT 95
--- NOTE | 2022-03-27 10:23 | ED.URI ---
HPI - URI/Sore Throat General Chief Complaint: Upper Respiratory Infection Stated Complaint: CVOID positive - difficulty swallowing Time Seen by Provider: 03/27/22 10:08 History of Present Illness HPI Narrative: 66-year-old female with cough, runny nose, sore throat for the last 4 days and recent diagnosis of COVID. No nausea vomiting. Has been taking very small doses of Tylenol and Advil at home with only minimal improvement. Came in because her doctor told her that she would be feeling better after 4 days. Does also have seasonal allergies, not taking any medications for this. Related Data Home Medications Medication Instructions Recorded Confirmed calcium carbonate 600 mg calcium 600 mg PO DAILY 09/24/19 01/18/22 (1,500 mg) tablet aspirin 81 mg tablet,delayed 81 mg PO 3XW 08/14/20 01/18/22 release omega-3 fatty acids 1,000 mg 1,000 mg PO DAILY 09/01/20 01/18/22 capsule (Fish Oil Concentrate) omeprazole 20 mg capsule,delayed 20 mg PO DAILY 01/18/22 01/18/22 release Allergies Allergy/AdvReac Type Severity Reaction Status Date / Time codeine Allergy Mild BLURRED Verified 03/27/22 10:10 VISION propoxyphene Allergy Mild BLURRED Verified 03/27/22 10:10 VISION bupivacaine Allergy Unknown . Verified 03/27/22 10:10 influenza virus vaccine, AdvReac Intermediate Swelling Verified 03/27/22 10:10 specific dextromethorphan AdvReac Anxiety Verified 03/27/22 10:11 ALL [employer]ODU[employer] MADE WITH Allergy Mild Swelling Uncoded 03/27/22 10:10 ESTERS Review of Systems Review of Systems: CONST: No fever. HEENT: Sore throat C/V: No chest pain RESP: Cough GI: No nausea or vomiting : No dysuria. M/S: No joint pain. SKIN: No rash. 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 She lives alone. No pets. She drinks 2 alcoholic drinks a night. No drug use. Lifelong nonsmoker. She is a full code. She nominates her brother to be the individual would make medical decisions for her if she is not able. Smoking status: Never smoker Alcohol intake: current Drinks per week: 5 Substance use: never Gender identity (if verbalized by the patient): Female Sexual Orientation (if Verbalized by the Patient): Straight or Heterosexual Spiritual care concerns: No Exam Narrative: EXAMINATION OF ORGAN SYSTEMS/BODY AREAS: Constitutional: Vital signs per nursing GENERAL:[No acute distress, non-toxic appearing.] HEAD: Normal with no signs of head trauma. EYES: EOMI, conjunctiva normal ENT: No pharyngeal exudates LUNGS: Nonlabored breathing. HEART: [Regular rate and rhythm] ABD: [Soft], [nontender to palpation] EXT: Normal range of motion SKIN: [No rashes or lesions.] NEURO: [Alert and oriented x 3. No gross focal sensory or strength deficits.] PSYCH: Normal affect Course Course Malena
[2022-03-27] MEDS: KETOROLAC 30 MG/ML VIAL (*BKC) 15 MG IM (10:25)
[2022-03-27] MEDS: DEXAMETHASONE 2 MG TABLET 6 MG PO (10:26)
[2022-03-27 10:58] LABS: Estimated CRCL calculation 41 ml/min; Estimated Glomerular Filt Rate 50
[2022-03-27 11:15] VITALS: BP 118/61; PULSE 70; RESP 16; O2SAT 96
[2022-03-27 11:22] LABS: SARS-CoV-2 RNA PCR Positive
[2022-03-27 11:37] VITALS: BP 100/71; PULSE 70; RESP 20; O2SAT 98
== END 2022-03-27 11:39 | disposition home or self-care (01) ==
LOC: ANHED 10:57
PROVIDERS: Emergency Provider Emergency Medicine; PCP Internal Medicine
DX: U07.1 COVID-19 (principal); J02.9 Acute pharyngitis, unspecified; I12.9 Hypertensive chronic kidney disease with stage 1 through stage 4 chronic kidney disease, or unspecified chronic kidney disease; N18.9 Chronic kidney disease, unspecified; K21.9 Gastro-esophageal reflux disease without esophagitis; E78.5 Hyperlipidemia, unspecified; R73.03 Prediabetes; Z79.82 Long term (current) use of aspirin
CPT/HCPCS: 36415; 82565; 96372; 99283; C9803; J1885; J8540; U0003; U0005

== ENCOUNTER → 2022-06-07 10:19 | Outpatient (CLI) | payer MEDICARE, OTHER, SELFPAY ==
--- NOTE | ~2022-06-07 | DEXA_ITS ---
Bone Density Report Name: NEAL AMBROSIO Age: 66 Sex: Female Ethnicity: White Date of : 1955 Indication: postmenopausal; screening for osteoporosis; hysterectomy; Referring Provider: DAYDAY SIFUENTES Study: Bone densitometry was performed. Exam Date: June 07, 2022 Accession number: [id number] Bone Density: Region BMD T-score Z-score Classification AP Spine (L1-L4) 1.230 1.7 3.6 Normal Femoral Neck (Left) 0.872 0.2 1.9 Normal Total Hip (Left) 1.213 2.2 3.6 Normal Femoral Neck (Right) 0.824 -0.2 1.4 Normal Total Hip (Right) 1.136 1.6 3.0 Normal Total Hip Mean 1.175 1.9 3.3 Normal World Health Organization criteria for BMD impression classify patients as: Normal (T-score at or above -1.0), Osteopenia (T-score between -1.0 and -2.5), or Osteoporosis (T-score at or below -2.5). 10-year Fracture Risk: FRAX not reported because: All T-scores for Spine Total, Hip Total, Femoral Neck at or above -1.0 Previous Exams: Region Exam Age BMD T-score BMD Change BMD Change Date g/cm2 vs Baseline vs Previous AP Spine(L1-L4) 06/07/2022 66 1.230 1.7 -0.025* 0.033* 11/11/2014 58 1.198 1.4 -0.057* -0.036* 11/17/2009 54 1.234 1.7 -0.021 -0.021 09/13/2005 49 1.255 1.9 Total Hip(Left) 06/07/2022 66 1.213 2.2 0.003 0.070* 11/11/2014 58 1.143 1.6 -0.067* 0.011 11/17/2009 54 1.132 1.6 -0.078* -0.078* 09/13/2005 49 1.210 2.2 Total Hip(Right) 06/07/2022 66 1.136 1.6 -0.006 0.028* 11/11/2014 58 1.109 1.4 -0.033* -0.005 11/17/2009 54 1.113 1.4 -0.029* -0.029* 09/13/2005 49 1.142 1.6 *Denotes significance at 95% confidence level, LSC for AP Spine = 0.022 g/cm2, LSC for Total Hip = 0.027 g/cm2 Clinical Information Provided by Patient: Has used the following medications: Calcium Has the following medical conditions: Hysterectomy, Colitis Patient maximum height was 60.3 Menopause Age: 48 No regular weight bearing exercise Drinks caffeinated beverages Onset of menses at age 11 Number of children 1 Impression: The patient has normal bone mass. No significant bone loss was observed. Discussion: BONE DENSITY IS ABOVE THE MINIMUM DESIRABLE LEVEL AT ALL SKELETAL SITES TESTED. This patient?s bone mineral density is above the minimum
== END ==
PROVIDERS: PCP Internal Medicine; Visit Provider Internal Medicine
DX: Z78.0 Asymptomatic menopausal state (principal)
CPT/HCPCS: 77080

== ENCOUNTER → 2023-04-11 15:24 | Outpatient (CLI) | payer MEDICARE, OTHER, SELFPAY ==
--- NOTE | ~2023-04-11 | MM_ITS ---
EXAMINATION: MM screening juliana BI w lamberto HISTORY: Screening mammogram TECHNIQUE: Craniocaudal and mediolateral oblique 3-D tomosynthesis images were obtained and synthetic 2-D images were generated. CAD analysis was submitted and interpreted. COMPARISON: 05/25/2021, 06/25/2019 bilateral screening mammogram examinations BREAST PARENCHYMAL COMPOSITION: The breasts are heterogeneously dense, which may obscure small masses . FINDINGS: Stable fibroglandular asymmetry. There is no evidence of suspicious mass, calcification, or architectural distortion to suggest malignancy in either breast. There has been no suspicious interv al change. IMPRESSION: 1. No mammographic evidence of malignancy. 2. Recommend routine screening mammography in one year. BI-RADS Category 2: Benign finding(s). Reviewed, dictated and finalized at location A.
== END ==
PROVIDERS: PCP Obstetrics & Gynecology; Visit Provider Obstetrics & Gynecology
DX: Z12.31 Encounter for screening mammogram for malignant neoplasm of breast (principal)
CPT/HCPCS: 77063; 77067

== ENCOUNTER 2023-05-26 14:54 | Outpatient (CLI) | payer MEDICARE, OTHER, SELFPAY ==
--- NOTE | ~2023-05-26 | XR_ITS ---
Right Hand Technique: PA, oblique, and lateral views were obtained. Clinical History: Middle finger dislocation Findings: No acute fracture or dislocation is seen. Osseous alignment is anatomic. Joint spaces are p reserved. Soft tissues are unremarkable. Impression: Unremarkable right hand. Reviewed, dictated and finalized at location . Impression: Unremarkable right hand.
== END 2023-05-26 14:55 | disposition home or self-care (01) ==
PROVIDERS: PCP Internal Medicine; Visit Provider Internal Medicine
DX: S63.252A Unspecified dislocation of right middle finger, initial encounter (principal); X58.XXXA Exposure to other specified factors, initial encounter; M79.641 Pain in right hand
CPT/HCPCS: 73130

== ENCOUNTER 2023-09-12 14:40 | Outpatient (CLI) | payer MEDICARE, OTHER, SELFPAY ==
--- NOTE | 2023-09-12 14:43 | ECHO_ITS ---
Patient Info Name: Olimpia Ybarra Age: 67 years : 1955 Gender: Female Ht: 60 in Wt: 165 lbs BSA: 1.81 m2 HR: 66 bpm BP: 121 / 61 mmHg Technical Quality: Fair Exam Date: 09/12/2023 2:53 PM Exam Location: Echo Lab Patient Status: Outpatient Admit Date: 09/12/2023 Staff Ordering Physician: Von Zhang MD Privacy Officer: Esther Vines RDCS Attending Provider: Von Zhang MD Referring Physician: Vicente AREVALO; Exam Type: CA echo doppler color flow Study Info Indications - ABNORMAL EKG Complete two-dimensional, color flow and Doppler transthoracic echocardiogram is performed. Summary 1. Complete two-dimensional, color flow and Doppler transthoracic echocardiogram is performed. 2. Left ventricular chamber dimension is normal. 3. Left ventricular systolic function is normal, estimated at 60-65%. 4. The left ventricular diastolic function is grade I diastolic dysfunction. 5. E/e' 9 is minimally elevated. 6. There is mild aortic valve sclerosis. 7. There is trace aortic valve regurgitation. 8. There is trace tricuspid valve regurgitation. 9. No pulmonary hypertension, estimated pulmonary arterial systolic pressure is 34 mmHg. Left Ventricle E/e' 9 is minimally elevated. Left ventricular chamber dimension is normal. Left ventricular systolic function is normal, estimated at 60-65%. The left ventricular diastolic function is grade I diastolic dysfunction. Right Ventricle Right ventricular chamber dimension is normal. Right ventricular systolic function is normal. Left Atria Left atrial chamber dimension is normal. Right Atria Right atrial chamber dimension is normal. Aortic Valve The aortic valve is trileaflet. There is mild aortic valve sclerosis. There is no aortic valve stenosis. There is trace aortic valve regurgitation. Pulmonic Valve There is no pulmonic regurgitation. Mitral Valve There is no mitral valve stenosis. There is no mitral valve regurgitation. Tricuspid Valve There is trace tricuspid valve regurgitation. No pulmonary hypertension, estimated pulmonary arterial systolic pressure is 34 mmHg. Pericardium/Pleural There is no pericardial effusion. Inferior Vena Cava Normal inferior vena cava with >50% collapse upon inspiration consistent with normal right atrial pressure, 5 mmHg. Aorta The aortic root size at the sinus of Valsalva is normal. Left Ventricular Outflow Tract Name Value Normal LVOT 2D LVOT Diameter 2.0 cm LVOT Doppler LVOT Peak Gradient 4 mmHg LVOT Mean Gradient 2 mmHg LVOT VTI 23 cm LVOT VTI/AV VTI Ratio 0.8 LVOT Stroke Volume 69 ml LVOT CO 12.9 l/min LVOT CI 7.1 l/min/m2 Pulmonic Valve Name Value Normal RVOT Doppler RVOT Peak Gradient 2 mmHg
== END 2023-09-12 14:41 | disposition home or self-care (01) ==
LOC: ANHCARD 14:41
PROVIDERS: PCP Internal Medicine; Visit Provider Internal Medicine
DX: R94.31 Abnormal electrocardiogram [ECG] [EKG] (principal)
CPT/HCPCS: 93306

== ENCOUNTER 2024-02-10 11:46 | Outpatient (CLI) | payer MEDICARE, OTHER, SELFPAY ==
--- NOTE | ~2024-02-10 | US_ITS ---
US renal BI 02/10/2024 12:04 Procedure: Realtime transabdominal ultrasound of the kidneys and bladder. Indication: Chronic kidney disease stage I Comparison: No prior studies for comparison. Findings: Renal echotexture is normal bilaterally without hydronephrosis, contour deforming mass or r enal calculus. The right kidney measures 9 cm and left kidney measures 9.5 cm. Bladder within normal limits. Impression: 1: Unremarkable renal ultrasound. No stones, masses or hydronephrosis. Reviewed, dictated and finalized at location A. Impression: 1: Unremarkable renal ultrasound. No stones, masses or hydronephrosis.
== END 2024-02-10 11:47 ==
LOC: MICIMG 11:47
PROVIDERS: PCP Internal Medicine; Visit Provider Internal Medicine
DX: N18.1 Chronic kidney disease, stage 1 (principal)
CPT/HCPCS: 76775

== ENCOUNTER 2024-02-13 11:06 | Outpatient (CLI) | payer MEDICARE, OTHER, SELFPAY ==
[2024-02-13 12:39] LABS: Add Urine Microscopic? YES; Appearance Urine Clear (Clear); Bacteria Urine None Seen /hpf; Bilirubin Urine Negative (Negative); Blood Urine 1+ (Negative); Color Urine Yellow (Yellow); Glucose Urine UA Negative (Negative); Hyaline Casts Urine Present /lpf; Ketones Urine Negative (Negative); Leukocyte Esterase Ur Negative LEU/UL (Negative); Need Manual Microscopic Reviewed; Nitrate Urine Negative (Negative); Protein Urine 2+ mg/dL (Negative); RBC Urine 0-2 /hpf (0-2); Specific Grav Ur 1.019 (1.001-1.035); Squamous Epithelial Cell Urine None Seen /hpf (Few); Urobilinogen Urine 0.2 mg/dL (<2.0); WBC Urine 0-5 /hpf (0-3); pH Urine 5.5 (5.0-9.0)
== END 2024-02-13 11:07 | disposition home or self-care (01) ==
LOC: ANHLAB 11:10
PROVIDERS: PCP Internal Medicine; Visit Provider Internal Medicine
DX: N18.9 Chronic kidney disease, unspecified (principal); R80.9 Proteinuria, unspecified
CPT/HCPCS: 81001

== ENCOUNTER 2024-08-02 10:37 | Outpatient (CLI) | payer MEDICARE, OTHER, SELFPAY ==
--- NOTE | ~2024-08-02 | MM_ITS ---
EXAMINATION: MM screening jul[facility] BI w lamberto HISTORY: Screening TECHNIQUE: Craniocaudal and mediolateral oblique 3-D tomosynthesis images were obtained and synthetic 2-D images were generated. CAD analysis was submitted and interpreted. COMPARISON: Comparison to multiple prior studies sequentially, with oldest reviewed study dated 01/2017. BREAST PARENCHYMAL COMPOSITION: Not dense: There are scattered areas of fibroglandular density. FINDINGS: There is no evidence of suspicious mass, calcification, or architectural distortion to sugg est malignancy in either breast. There has been no suspicious interval change. IMPRESSION: 1. No mammographic evidence of malignancy. 2. Recommend routine screening mammography in one year. BI-RADS Category 1: Negative Reviewed, dictated and finalized at location B.
== END 2024-08-02 10:38 | disposition home or self-care (01) ==
LOC: MICIMG 10:39
PROVIDERS: PCP Internal Medicine; Visit Provider Obstetrics & Gynecology
DX: Z12.31 Encounter for screening mammogram for malignant neoplasm of breast (principal)
CPT/HCPCS: 77063; 77067

== ENCOUNTER 2024-08-29 13:16 | Outpatient (CLI) | payer MEDICARE, OTHER, SELFPAY ==
--- NOTE | ~2024-08-29 | US_ITS ---
EXAMINATION: US thyroid DATE: 08/29/2024 13:35 INDICATION: Disorder of parathyroid gland, borderline abnormal thyroid function TECHNIQUE: Multiple ultrasound images of the thyroid were obtained. COMPARISON: None. FINDINGS: The right thyroid lobe measures 4.0 x 1.2 x 0.9 cm. The left thyroid lobe measures 4.3 x 1.5 x 1.0 c m. There is heterogeneous echotexture and normal echogenicity throughout the thyroid gland. 2.1 cm l eft inferior thyroid nodule that is solid, hypoechoic, wider than tall, and smoothly marginated, with no echogenic foci (TI-RADS 4). Normal vascular flow is present. IMPRESSION: Moderately suspicious 2.1 cm left inferior thyroid nodule, recommend FNA for further evaluation. Heterogeneous thyroid echogenicity as can be seen with Graves' disease and Jose's thyroiditis. Reviewed, dictated and finalized at location K. IMPRESSION: Moderately suspicious 2.1 cm left inferior thyroid nodule, recommend FNA for fu rther evaluation. Heterogeneous thyroid echogenicity as can be seen with Graves' disease and Hash imoto's thyroiditis.
== END 2024-08-29 13:17 | disposition home or self-care (01) ==
LOC: MICIMG 13:17
PROVIDERS: PCP Internal Medicine; Visit Provider Internal Medicine
DX: E83.52 Hypercalcemia (principal); R94.6 Abnormal results of thyroid function studies; E04.1 Nontoxic single thyroid nodule
CPT/HCPCS: 76536

== ENCOUNTER 2024-09-03 09:37 | Outpatient (CLI) | payer MEDICARE, OTHER, SELFPAY ==
--- NOTE | ~2024-09-03 | NM_ITS ---
EXAMINATION: NM parathyroid w imaging DATE: 09/03/2024 13:02 INDICATION: Disorder of parathyroid gland, unspecified. TECHNIQUE: 20 mCi Tc99m sestamibi was administered intravenously. Anterior images of the neck were ob tained immediately and at 2 hours. SPECT images of the neck were obtained. COMPARISON: Thyroid ultrasound 08/29/2024 FINDINGS: There is a persistent focus of increased activity in the area of the left thyroid gland on delayed images. IMPRESSION: 1. Persistent focus of increased activity in the area of the left thyroid gland on delayed images, co nsistent with a parathyroid adenoma. Reviewed, dictated and finalized at location A. SEAL IMPRESSION: 1. Persistent focus of increased activity in the area of the left thyroid gland on delayed images, consistent with a parathyroid adenoma.
== END 2024-09-03 09:38 | disposition home or self-care (01) ==
LOC: ANHIMG 09:37
PROVIDERS: PCP Internal Medicine; Visit Provider Internal Medicine
DX: E83.52 Hypercalcemia (principal); R94.6 Abnormal results of thyroid function studies
CPT/HCPCS: 78070; A9500

== ENCOUNTER 2025-08-20 10:17 | Outpatient (CLI) | payer MEDICARE, OTHER, SELFPAY ==
--- NOTE | ~2025-08-20 | MM_ITS ---
EXAMINATION: MM screening juliana BI w lamberto HISTORY: Screening TECHNIQUE: Craniocaudal and mediolateral oblique 3-D tomosynthesis images were obtained and synthetic 2-D images were generated. CAD analysis was submitted and interpreted. COMPARISON: Comparison to multiple prior studies sequentially, with oldest reviewed study dated , 04/17/2018 BREAST PARENCHYMAL COMPOSITION: There are scattered areas of fibroglandular density. FINDINGS: There is no evidence of suspicious mass, calcification, or architectural distortion to suggest malignancy in either breast. IMPRESSION: 1. No mammographic evidence of malignancy. 2. Recommend routine screening mammography in one year. BI-RADS Category 1: Negative Reviewed, dictated and finalized at location B.
== END 2025-08-20 10:18 | disposition home or self-care (01) ==
LOC: MICIMG 10:19
PROVIDERS: PCP Internal Medicine; Visit Provider Obstetrics & Gynecology
DX: Z12.31 Encounter for screening mammogram for malignant neoplasm of breast (principal)
CPT/HCPCS: 77063; 77067